=== PATIENT | female | born 1935 | race Caucasian/White ===

== ENCOUNTER 2017-01-05 11:27 | Outpatient (CLI) | payer MEDICARE, BC ==
[2017-01-05 12:00] LABS: #Basophils 0.1 thou/uL (0.0-0.2); #Eosinphils 1.1 thou/uL (0.0-0.7); #Lymphocytes 1.1 thou/uL (1.20-3.40); #Monocytes 0.8 thou/uL (0.11-0.59); #Neutrophils 3.4 thou/uL (1.40-6.50); %Basophils 1.9 % (0.0-1.0); %Eosinophils 16.6 % (0.0-10.0); %Lymphocytes 17.3 % (21.0-51.0); %Monocytes 12.4 % (0.0-10.0); %Neutrophils 51.8 % (42.0-75.0); Hemoglobin 11.5 g/dL (12.0-16.0); Mean Corpuscular HGB CONC 32.4 g/dL (32.0-36.0); Mean Corpuscular Hemoglobin 27.9 pg (27.0-31.0); Mean Platelet Volume 7.7 fL (7.4-10.4); Platelet Count 293 thou/uL (130-400); RBC Distribution Width 14.3 % (11.5-14.5); Red Blood Cell (RBC) Count 4.12 mill/uL (4.20-5.40); White Blood Cell (WBC) Count 6.6 thou/uL (4.8-10.8)
[2017-01-05 12:13] LABS: ALT (SGPT) 7 U/L (0-55); AST (SGOT) 16 U/L (5-34); Albumin 3.6 g/dL (3.4-4.8); Alkaline Phosphatase 64 U/L (40-150); Anion Gap 12 mmol/L (10-20); BUN (Urea Nitrogen) 14 mg/dL (9.8-20.1); Bilirubin, Total 0.3 mg/dL (0.2-1.2); CRP (Inflammatory) 0.55 mg/dL (= or < 0.5); Calc. Creatinine Clearance 0 mL/min (70-130); Calcium 9.2 mg/dL (7.8-10.44); Carbon Dioxide 24 mmol/L (23-31); Chloride 103 mmol/L (98-107); Estimated GFR-MDRD 72; Globulin 3.1 g/dL (2.4-3.5); Glucose 110 mg/dL (83-110); Potassium 4.7 mmol/L (3.5-5.1); Protein, Total 6.7 g/dL (5.8-8.1); Sodium 134 mmol/L (136-145)
[2017-01-05 12:35] LABS: Free T4 (Free Thyroxine) 0.97 ng/dL (0.70-1.48); Thyroid Stimulating Hormone 0.1531 uIU/mL (0.35-4.94)
== END 2017-01-05 11:28 | disposition home or self-care (01) ==
LOC: MADLAB 11:27
PROVIDERS: ATTEND Family Medicine
DX: E89.0 Postprocedural hypothyroidism (principal); D50.9 Iron deficiency anemia, unspecified; I15.9 Secondary hypertension, unspecified; I73.9 Peripheral vascular disease, unspecified; M86.9 Osteomyelitis, unspecified; M05.9 Rheumatoid arthritis with rheumatoid factor, unspecified; Z79.899 Other long term (current) drug therapy
CPT/HCPCS: 36415; 80053; 84439; 84443; 84479; 85025; 85652; 86140

== ENCOUNTER 2017-05-09 09:15 | Outpatient (CLI) | payer MEDICARE, BC ==
[2017-05-09 09:50] LABS: ALT (SGPT) 10 U/L (8-55); AST (SGOT) 17 U/L (5-34); Albumin 3.4 g/dL (3.4-4.8); Alkaline Phosphatase 62 U/L (40-150); Anion Gap 15 mmol/L (10-20); BUN (Urea Nitrogen) 17 mg/dL (9.8-20.1); Bilirubin, Total 0.3 mg/dL (0.2-1.2); CRP (Inflammatory) 2.38 mg/dL (= or < 0.5); Calc. Creatinine Clearance 0 mL/min (70-130); Carbon Dioxide 24 mmol/L (23-31); Chloride 106 mmol/L (98-107); Estimated GFR-MDRD 65; Globulin 3.6 g/dL (2.4-3.5); Glucose 116 mg/dL (83-110); Potassium 4.5 mmol/L (3.5-5.1); Sodium 140 mmol/L (136-145)
[2017-05-09 10:52] LABS: Band 1 % (5-11); Eosinophils 7 % (0-10); Hemoglobin 10.8 g/dL (12.0-16.0); Lymphocytes 20 % (21-51); MDiff Complete? YES; Mean Corpuscular HGB CONC 32.5 g/dL (32.0-36.0); Mean Corpuscular Hemoglobin 27.9 pg (27.0-31.0); Mean Corpuscular Volume 85.6 fl (81.0-99.0); Monocytes 15 % (0-10); Neutrophil 57 % (42-75); PLT Morphology Comment Appears Adequate; Platelet Count 275 thou/uL (130-400); RBC Distribution Width 14.7 % (11.5-14.5); Red Blood Cell (RBC) Count 3.89 mill/uL (4.20-5.40); White Blood Cell (WBC) Count 6.5 thou/uL (4.8-10.8)
== END 2017-05-09 09:16 | disposition home or self-care (01) ==
LOC: MADLAB 09:15
PROVIDERS: ATTEND Internal Medicine Rheumatology
DX: M05.79 Rheumatoid arthritis with rheumatoid factor of multiple sites without organ or systems involvement (principal); Z79.899 Other long term (current) drug therapy
CPT/HCPCS: 36415; 80053; 85025; 85652; 86140

== ENCOUNTER 2017-07-21 10:31 | Outpatient (CLI) | payer MEDICARE, BC ==
--- NOTE | 2017-07-21 15:22 | RAD ---
LEFT GREAT TOE HISTORY: Lesion on right great toe. Left great toe taken for correlation. FINDINGS: Three views obtained. There is fusion at the first MTP joint. There are subluxations of the PIP joints of the visualized second and third toes. Degenerative change is seen at the visualized MTP joints of second and third toes. No acute fracture. No evidence of focal lytic or destructive lesion. IMPRESSION: There is fusion of the first metatarsophalangeal joint with secondary degenerative changes. No acut e fracture, erosion, or destructive process identified. POS: [facility]
--- NOTE | 2017-07-21 15:25 | RAD ---
GREAT TOE RIGHT FOOT HISTORY: Lesion on the right great toe. CORRELATION: Plain films of the right foot, which included the right great toe, dated 01/28/2016. FINDINGS: Three views obtained. Prior fusion of the first MTP joint is noted. Deformity of the IP joint of the great toe is seen wi th secondary degenerative change. There has been prior amputation of the second toe at the MTP join t. Degenerative change of the visualized MTP and IP joints of third toe noted. There is lucency seen along the lateral margin of the distal first metatarsal, near the fused MTP tru int. This is a stable finding from 01/28/2016. No new lytic or destructive lesion. No acute fract ure. IMPRESSION: The right great toe findings appear stable when compared to the 01/28/2016 exam. POS: [facility]
== END 2017-07-21 10:32 | disposition home or self-care (01) ==
LOC: MADRAD 10:31
PROVIDERS: ATTEND Podiatrist
DX: L97.509 Non-pressure chronic ulcer of other part of unspecified foot with unspecified severity (principal)

== ENCOUNTER 2017-08-29 14:59 | Inpatient (IN) | payer MEDICARE, BC ==
[2017-08-29] MEDS ORDERED: Acetaminophen 325 MG TAB PO PRN (18:42)
[2017-08-29] MEDS ORDERED: ALPRAZolam 0.25 MG TAB PO PRN (18:46)
[2017-08-29] MEDS: Latanoprost 0.005% Ophth Soln 2.5 ml Bottle EA EYE SCH (20:25)
[2017-08-29] MEDS: Brimonidine Tartrate 0.2% Ophth Soln 5 ml Bottle EA EYE SCH (20:25)
[2017-08-29] MEDS: Ezetimibe 10 MG TAB PO SCH (20:26)
[2017-08-29] MEDS: Multivit, Therapeutic 1 TAB PO SCH (20:26)
[2017-08-29] MEDS: AMOXicillin 250 MG CAP PO SCH (20:26)
[2017-08-29] MEDS: Nebivolol HCl 5 MG TAB PO SCH (20:26)
[2017-08-29] MEDS: COLESEVELAM PO SCH (20:27)
[2017-08-29] MEDS: Docusate 100 MG CAP PO SCH (20:28)
[2017-08-29] MEDS ORDERED: traMADol HCl 50 MG TAB PO SCH ×3 (20:30→21:30)
--- NOTE | 2017-08-30 00:28 | HP ---
CHIEF COMPLAINT: Weakness and status post hip fracture. HISTORY OF PRESENT ILLNESS: Ms. Martin is transferred today from [place] in [place] for [facility] in physical therapy, status post a left hip fracture. She was admitted with the fracture on 08/26 after falling at home. She had a partial hip replacement per Dr. Jose and did well postope ratively, but needs strengthening prior to returning home. She can receive that physical therapy, o ccupational and speech therapy here at [facility]. PAST MEDICAL HISTORY: Significant for, 1. Congestive heart failure and aortic regurgitation. 2. Left hip fracture. 3. Head contusion. 4. History of inflammatory bowel disease. 5. Glaucoma. 6. Hypertension. 7. Dyslipidemia. 8. 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 9. History of rhabdomyolysis secondary to Lipitor. 10. History of thyroid cancer with resulting hypothyroidism. 11. Severe dementia. PAST SURGICAL HISTORY: Includes, 1. Appendectomy. 2. Thyroidectomy. 3. Cholecystectomy. 4. Carpal tunnel syndrome repair. 5. Spinal stenosis. 6. She had cataract surgery and breast biopsies as well as foot surgery with partial amputations du e to the osteomyelitis. SOCIAL HISTORY: No history of alcohol or tobacco abuse. FAMILY HISTORY: Noncontributory, although there is family history of dementia in her mother. The patient is not cooperative at this time. She simply states she wants to go home and is actively trying to get out of the bed. ALLERGIES: She is allergic to CODEINE. MEDICATIONS: Include Plavix 75 mg daily, Alphagan drops, aspirin 81 mg, Bystolic 5 mg p.o. b.i.d., Plavix 75 mg daily, folic acid 1 mg daily, furosemide 20 mg 1 daily, latanoprost drops 0.005% ophtha lmic, Cytomel 25 mcg 1 p.o. q.a.m., Synthroid 125 mcg p.o. q.a.m., Arava 20 mg q.a.m., Vayacog capsu les 310 mg p.o. q.a.m. PHYSICAL EXAMINATION: VITAL SIGNS: The patient's vital signs are stable. They are taken from her transfer as she is unco operative currently. HEENT: Normocephalic, atraumatic. Pupils PERRL. Extraocular motion is full. TM exam was not perf ormed. LUNGS: Clear in all pineda. CARDIAC: Regular. She does have a systolic murmur, which is 3/6 on the upper sternal border and at the apex. EXTREMITIES: Showed trace edema in the lower extremities. NEUROLOGIC: She has obvious dementia that is may well be acutely worse due to pain as the patient h as only been on 50 mg of tramadol every 6 hours. IMPRESSION: 1. An 82-year-old with severe dementia, who is status post fall and left hip fracture with partial hip replacement. 2. Weakness. 3. Congestive heart failure. 4. History of aortic stenosis. 5. History of inflammatory bowel disease. 6. Glaucoma. 7. Hypertension. 8. Dyslipidemia. 9. History of osteomyelitis in jaw and foot. 10. History of rhabdomyolysis secondary to Lipitor. 11. History of thyroid cancer and hypothyroidism. 12. Severe dementia. PLAN: 1. She will be admitted for weakness and will begin assessment by physical therapy, occupational th erapy, and speech therapy. 2. We will treat her pain adequately by initially increasing her tramadol to 2 tablets every 6 hour s. 3. Continue to monitor her weights daily and if needed check a BNP. 4. Continue home medications. 5. Add Seroquel and Xanax as needed for agitation. The patient does have a sitter in the evenings and we will follow up with her regularly until her medication and status are stable.
[2017-08-30] MEDS: traMADol HCl 50 MG TAB PO SCH ×4 (03:18→21:06)
[2017-08-30] MEDS: Levothyroxine Sodium 125 MCG TAB PO SCH (05:29)
[2017-08-30] MEDS: AMOXicillin 250 MG CAP PO SCH ×2 (08:14→21:06)
[2017-08-30] MEDS: Folic Acid 1 MG TAB PO SCH (08:14)
[2017-08-30] MEDS: Furosemide 20 MG TAB PO SCH (08:14)
[2017-08-30] MEDS: Clopidogrel Bisulfate 75 MG TAB PO SCH (08:14)
[2017-08-30] MEDS: Brimonidine Tartrate 0.2% Ophth Soln 5 ml Bottle EA EYE SCH ×2 (08:14→21:07)
[2017-08-30] MEDS ORDERED: FLU VACC TS2017-18 (>65YR) 0.5 ML SYRINGE IM ONE (09:00)
[2017-08-30] MEDS: COLESEVELAM PO SCH ×2 (10:54→21:08)
[2017-08-30] MEDS: LEFLUNOMIDE 20 MG PO SCH (14:16)
[2017-08-30] MEDS: VAYACOG PO SCH (14:17)
[2017-08-30] MEDS: LIOTHYRONINE SODIUM 25 MCG PO SCH (14:17)
[2017-08-30] MEDS: Ezetimibe 10 MG TAB PO SCH (21:05)
[2017-08-30] MEDS: Docusate 100 MG CAP PO SCH (21:06)
[2017-08-30] MEDS: Nebivolol HCl 5 MG TAB PO SCH (21:06)
[2017-08-30] MEDS: Multivit, Therapeutic 1 TAB PO SCH (21:06)
[2017-08-30] MEDS: Latanoprost 0.005% Ophth Soln 2.5 ml Bottle EA EYE SCH (21:07)
[2017-08-31] MEDS: traMADol HCl 50 MG TAB PO SCH ×4 (03:26→21:35)
[2017-08-31] MEDS: Levothyroxine Sodium 125 MCG TAB PO SCH (05:40)
[2017-08-31 07:12] LABS: ALT (SGPT) 8 U/L (8-55); AST (SGOT) 25 U/L (5-34); Albumin 2.8 g/dL (3.4-4.8); Alkaline Phosphatase 68 U/L (40-150); Anion Gap 14 mmol/L (10-20); BUN (Urea Nitrogen) 22 mg/dL (9.8-20.1); Bilirubin, Total 0.6 mg/dL (0.2-1.2); Calc. Creatinine Clearance 36 mL/min (70-130); Calcium 8.5 mg/dL (7.8-10.44); Carbon Dioxide 21 mmol/L (23-31); Chloride 104 mmol/L (98-107); Estimated GFR-MDRD 57; Globulin 2.8 g/dL (2.4-3.5); Glucose 96 mg/dL (83-110); Potassium 4.6 mmol/L (3.5-5.1); Protein, Total 5.6 g/dL (6.0-8.3); Sodium 134 mmol/L (136-145)
[2017-08-31 07:20] LABS: Hemoglobin 8.7 g/dL (12.0-16.0); Mean Corpuscular HGB CONC 32.2 g/dL (32.0-36.0); Mean Corpuscular Hemoglobin 28.1 pg (27.0-31.0); Mean Corpuscular Volume 87.1 fl (81.0-99.0); Mean Platelet Volume 7.2 fL (7.4-10.4); Platelet Count 255 thou/uL (130-400); RBC Distribution Width 15.9 % (11.5-14.5); Red Blood Cell (RBC) Count 3.06 mill/uL (4.20-5.40); White Blood Cell (WBC) Count 10.4 thou/uL (4.8-10.8)
[2017-08-31 07:22] LABS: Clarity Hazy (Clear); Glucose, Urine (Dipstick) Negative (Negative); Leukocyte Negative (Negative); Nitrite Negative (Negative); Protein, Urine (Dipstick) Negative (Neg-Trace)
[2017-08-31 07:23] LABS: Bacteria/HPF Rare-Few HPF (None Seen); Bilirubin Small (Negative); Blood, Urine Trace (Negative); Crystals/HPF 1+ AMORPH URATES HPF (Negative); RBC/HPF 0-3 HPF (0-3); Squamous Epithelial 0-3 HPF (0-3); Urobilinogen 0.2 mg/dL (0.2-1.0); WBC/HPF 0-3 HPF (0-3)
[2017-08-31 07:27] LABS: Anisocytosis SLIGHT = 6-15 cells (100X) (0-5/hpf); Band 5 % (5-11); Lymphocytes 15 % (21-51); MDiff Complete? YES; Manual Diff?? YES; Monocytes 13 % (0-10); Neutrophil 67 % (42-75); PLT Morphology Comment Appears Adequate
[2017-08-31] MEDS: AMOXicillin 250 MG CAP PO SCH ×2 (09:29→21:31)
[2017-08-31] MEDS: Folic Acid 1 MG TAB PO SCH (09:30)
[2017-08-31] MEDS: Furosemide 20 MG TAB PO SCH (09:30)
[2017-08-31] MEDS: Clopidogrel Bisulfate 75 MG TAB PO SCH (09:30)
[2017-08-31] MEDS: Brimonidine Tartrate 0.2% Ophth Soln 5 ml Bottle EA EYE SCH ×2 (09:31→21:31)
[2017-08-31] MEDS: VAYACOG PO SCH (09:32)
[2017-08-31] MEDS: COLESEVELAM PO SCH ×2 (09:32→21:34)
[2017-08-31] MEDS: LIOTHYRONINE SODIUM 25 MCG PO SCH (09:32)
[2017-08-31] MEDS: LEFLUNOMIDE 20 MG PO SCH (09:32)
--- NOTE | 2017-08-31 12:26 | RAD ---
PORTABLE UPRIGHT FRONTAL CHEST RADIOGRAPH: DATE: 08/31/17. COMPARISON: 08/26/17. HISTORY: Hypoxia, oxygen saturations of 85-89%. FINDINGS: There is atherosclerotic calcification of the thoracic aorta. Heart and mediastinal contours are st able. There is mild streaky opacity in the medial left lung base suggesting volume loss or less lik mariana mild infiltrate. No pneumothorax, lobar consolidation, or alveolar edema. IMPRESSION: No focal consolidation or alveolar edema. Mild increased linear density in the medial left lung bas e. POS: [facility]
[2017-08-31] MEDS: Sodium Chloride 0.9% 1,000 ML IV SCH (14:10)
[2017-08-31] MEDS ORDERED: Scopolamine 1.5 mg/72 hour Patch TD SCH (17:15)
[2017-08-31 17:43] LABS: Anion Gap 13 mmol/L (10-20); BUN (Urea Nitrogen) 27 mg/dL (9.8-20.1); Calc. Creatinine Clearance 29 mL/min (70-130); Calcium 8.7 mg/dL (7.8-10.44); Carbon Dioxide 22 mmol/L (23-31); Chloride 104 mmol/L (98-107); Estimated GFR-MDRD 43; Glucose 96 mg/dL (83-110); Potassium 5.4 mmol/L (3.5-5.1); Sodium 134 mmol/L (136-145)
--- NOTE | 2017-08-31 17:52 | RAD ---
PORTABLE AP CHEST X-RAY: 08/31/17 HISTORY: Shortness of breath and altered mental status. COMPARISON: 08/31/17 at 1015 hours. The cardiac silhouette is magnified by projection. It is stable in size. Pulmonary vasculature is wi thin normal limits. There is suggestion of mild patchy density at the left lung base which may be re lated to developing area of pneumonitis. There is also slightly greater increased density at the medial right lung base. Vascular calcificati on see in the thoracic aorta. There is osteopenia. No other interval change. IMPRESSION: Bibasilar parenchymal densities which may be attributable to bibasilar atelectasis or developing are as of pneumonitis. Followup to resolution is recommended. POS: [facility]
[2017-08-31 17:56] LABS: Band 4 % (5-11); Eosinophils 4 % (0-10); Hemoglobin 8.9 g/dL (12.0-16.0); Lymphocytes 4 % (21-51); MDiff Complete? YES; Mean Corpuscular HGB CONC 31.9 g/dL (32.0-36.0); Mean Corpuscular Hemoglobin 27.9 pg (27.0-31.0); Mean Corpuscular Volume 87.5 fl (81.0-99.0); Mean Platelet Volume 7.2 fL (7.4-10.4); Monocytes 7 % (0-10); Neutrophil 74 % (42-75); PLT Morphology Comment Appears Adequate; Platelet Count 273 thou/uL (130-400); Polychromasia SLIGHT = 2-3 cells (100X) (0-2/hpf); RBC Distribution Width 15.8 % (11.5-14.5); Reactive Lymphocytes 7 % (0-10); Red Blood Cell (RBC) Count 3.18 mill/uL (4.20-5.40); White Blood Cell (WBC) Count 8.8 thou/uL (4.8-10.8)
[2017-08-31] MEDS ORDERED: cefTRIAXone\\ROCEPHIN 1 GM in Sodium Chloride 0.9% 100 ML IVPB SCH (18:00)
[2017-08-31] MEDS ORDERED: Sodium Chloride For Inhalation 0.9% 3 ML NEB ONE (18:03)
[2017-08-31] MEDS: Morphine Sulfate 10 mg/0.5 ml Oral Syringe NEB PRN ×2 (18:08→22:42)
[2017-08-31] MEDS ORDERED: Furosemide 20 MG/2 ML VIAL SLOW IVP SCH (18:15)
[2017-08-31 18:21] LABS: CKMB 2.6 ng/mL (0-6.6)
[2017-08-31 18:37] LABS: Troponin I 0.626 ng/mL (< 0.028)
[2017-08-31] MEDS ORDERED: Enoxaparin Sodium 30 MG/0.3 ML SYRINGE SC SCH (21:00)
[2017-08-31] MEDS: Docusate 100 MG CAP PO SCH (21:32)
[2017-08-31] MEDS: Multivit, Therapeutic 1 TAB PO SCH (21:33)
[2017-08-31] MEDS: Ezetimibe 10 MG TAB PO SCH (21:33)
[2017-08-31] MEDS: Latanoprost 0.005% Ophth Soln 2.5 ml Bottle EA EYE SCH (21:33)
[2017-08-31] MEDS: Nebivolol HCl 5 MG TAB PO SCH (21:34)
[2017-09-01] MEDS: traMADol HCl 50 MG TAB PO SCH ×2 (03:28→10:01)
[2017-09-01 05:34] LABS: AST (SGOT) 24 U/L (5-34); Albumin 2.7 g/dL (3.4-4.8); Alkaline Phosphatase 80 U/L (40-150); Anion Gap 16 mmol/L (10-20); BUN (Urea Nitrogen) 29 mg/dL (9.8-20.1); Bilirubin, Total 0.7 mg/dL (0.2-1.2); Calc. Creatinine Clearance 28 mL/min (70-130); Calcium 8.3 mg/dL (7.8-10.44); Carbon Dioxide 20 mmol/L (23-31); Chloride 107 mmol/L (98-107); Estimated GFR-MDRD 42; Glucose 93 mg/dL (83-110); Potassium 4.7 mmol/L (3.5-5.1); Sodium 138 mmol/L (136-145)
[2017-09-01 05:48] LABS: ALT (SGPT) 9 U/L (8-55); Globulin 2.7 g/dL (2.4-3.5); Protein, Total 5.4 g/dL (6.0-8.3)
[2017-09-01 05:54] LABS: CKMB 4.6 ng/mL (0-6.6)
[2017-09-01 05:56] LABS: Troponin I 0.395 ng/mL (< 0.028)
[2017-09-01] MEDS: Levothyroxine Sodium 125 MCG TAB PO SCH (06:10)
[2017-09-01 08:18] VITALS: BP 115/64; TEMP 97.6
[2017-09-01] MEDS ORDERED: Furosemide 20 MG TAB PO SCH (10:00)
[2017-09-01] MEDS: AMOXicillin 250 MG CAP PO SCH (10:02)
[2017-09-01] MEDS: LEFLUNOMIDE 20 MG PO SCH (10:03)
[2017-09-01] MEDS: Clopidogrel Bisulfate 75 MG TAB PO SCH (10:03)
[2017-09-01] MEDS: LIOTHYRONINE SODIUM 25 MCG PO SCH (10:03)
[2017-09-01] MEDS: Brimonidine Tartrate 0.2% Ophth Soln 5 ml Bottle EA EYE SCH (10:06)
[2017-09-01] MEDS: Furosemide 20 MG TAB PO SCH (10:44)
[2017-09-01] MEDS: Folic Acid 1 MG TAB PO SCH (10:44)
[2017-09-01] MEDS: VAYACOG PO SCH (10:45)
[2017-09-01] MEDS: COLESEVELAM PO SCH (10:45)
[2017-09-01] MEDS: Sodium Chloride 0.9% 1,000 ML IV SCH (11:26)
[2017-09-01] MEDS ORDERED: Acetaminophen 325 MG TAB PO PRN (13:01)
[2017-09-01] MEDS ORDERED: Sodium Chloride 0.9% 1,000 ML BAG ONE (13:45)
[2017-09-01 15:37] VITALS: BMI 20.8
[2017-09-01] MEDS ORDERED: traMADol HCl 50 MG TAB PO SCH (18:00)
[2017-09-01] MEDS ORDERED: Non-Formulary Item 1 EACH (Nebivolol Hcl [Bystolic] 10 MG) PO SCH (21:00)
[2017-09-01] MEDS ORDERED: Non-Formulary Item 1 EACH (Brimonidine Tartrate [Alphagan P 0.1% Ophth Soln] 1 DROP) EA EYE SCH (21:00)
[2017-09-01] MEDS ORDERED: Docusate 100 MG CAP PO SCH (21:00)
[2017-09-01] MEDS ORDERED: AMOXICILLIN 500 MG PO SCH (21:00)
[2017-09-01] MEDS ORDERED: Latanoprost 0.005% Ophth Soln 2.5 ml Bottle EA EYE SCH (21:00)
[2017-09-02] MEDS ORDERED: CLOPIDOGREL BISULFATE PO SCH (09:00)
[2017-09-02] MEDS ORDERED: Levothyroxine Sodium 100 MCG TAB PO SCH (09:00)
[2017-09-02] MEDS ORDERED: Furosemide 20 MG TAB PO SCH ×2 (09:00)
[2017-09-02] MEDS ORDERED: LEFLUNOMIDE 20 MG PO SCH (09:00)
[2017-09-02] MEDS ORDERED: LIOTHYRONINE SODIUM 25 MCG PO SCH (09:00)
[2017-09-02] MEDS ORDERED: Folic Acid 1 MG TAB PO SCH (09:00)
== END 2017-09-01 17:20 | disposition hospice, home (50) | DRG 561 ==
LOC: MADMS 15:30
PROVIDERS: ADMIT Family Medicine; ATTEND Family Medicine
DX: Z47.1 Aftercare following joint replacement surgery (principal); F03.90 Unspecified dementia, unspecified severity, without behavioral disturbance, psychotic disturbance, mood disturbance, and anxiety; I11.0 Hypertensive heart disease with heart failure; I50.9 Heart failure, unspecified; Z96.642 Presence of left artificial hip joint; H40.9 Unspecified glaucoma; E78.5 Hyperlipidemia, unspecified; Z85.850 Personal history of malignant neoplasm of thyroid; E89.0 Postprocedural hypothyroidism; Z88.5 Allergy status to narcotic agent; Z79.01 Long term (current) use of anticoagulants; R33.9 Retention of urine, unspecified
CPT/HCPCS: 36415; 71010; 80053; 81001; 82553; 83880; 84484; 85025; 87086; 93005; 93010; A4353; G8996-GN-CK; G8997-GN-CK; G8998-GN-CK; J0696; J1650; J1940; J7050; J7620